=== PATIENT | male | born 1985 | race Caucasian/White ===

== ENCOUNTER 2020-12-20 09:56 | Emergency (ER) | payer BC ==
[~2020-12-20] VITALS: Ht 180.3 cm; Wt 95.3 kg
[2020-12-20] MEDS ORDERED: TESSALON PERLE100 MG PO (12:59)
[2020-12-20] MEDS ORDERED: MUCINEX DM 30/61 TAB PO (12:59)
== END 2020-12-20 13:02 | disposition home or self-care (01) ==
LOC: ED 09:56
DX: U07.1 COVID-19 (principal); J12.82 Pneumonia due to coronavirus disease 2019